=== PATIENT | male | born 1935 | race Caucasian/White ===

== ENCOUNTER 2018-06-04 12:24 | Observation (INO) | payer MEDICARE, BC ==
[~2018-06-04] VITALS: Ht 167.6 cm; Wt 74.0 kg
[~2018-06-04 12:24] MED LIST: ATORVASTATIN CA40 MG PO; FINASTERIDE5 MG PO; LOSARTAN-HCTZ1 EACH PO; MINOCYCLINE HCL50 MG PO; TYLENOL WITH C1 EACH PO
[2018-06-04] MEDS ORDERED: ASPIRIN 81 MG CHEW TAB PO ONE ×2 (12:30→13:30)
[2018-06-04] MEDS ORDERED: ASPIR 8181 MG (12:53)
[2018-06-04] MEDS ORDERED: MULTI-VITAMIN1 EACH (12:53)
[2018-06-04 12:55] LABS: BASOPHILS # (AUTO) 0.1 (0.0-0.1); BASOPHILS % 0.6 % (0.0-1.0); EOSINOPHILS # (AUTO) 0.5 (0.0-0.4); EOSINOPHILS % 5.1 % (0.0-6.0); HEMOGLOBIN 14.3 g/dL (14.0-18.0); LYMPHOCYTES # (AUTO) 3.1 (1.0-3.2); LYMPHOCYTES % 33.9 % (18.0-39.1); MEAN CORPUSCULAR HEMOGLOBIN 30.8 pg (28-32); MEAN CORPUSCULAR HGB CONC 35.8 g/dL (31-35); MEAN CORPUSCULAR VOLUME 86.2 fL (81-99); MONOCYTES % 10.5 % (4.4-11.3); NEUTROPHILS # (AUTO) 4.5 (2.1-6.9); NEUTROPHILS % 49.3 % (38.7-80.0); PLATELET COUNT 188 x10e3/uL (140-360); RED BLOOD COUNT 4.64 x10e6/uL (4.3-5.7); RED CELL DISTRIBUTION WIDTH 12.3 % (11.7-14.4)
--- NOTE | 2018-06-04 13:01 | Diagnostic Imaging Report ---
EXAM: XR CHEST 1 VIEW DATE: 06/04/2018 12:30 PM INDICATION: Weakness COMPARISON: None FINDINGS: Lines and Tubes: Left chest wall pacemaker. MERCHANDISING CONSULTANT shunt tubing left chest wall. Heart and Mediastinum: No acute cardiomediastinal findings. Lungs and Pleura: No significant pleural effusion, pneumothorax, or focal consolidation. Minimal atelectasis left lung base. Bones and Soft Tissues: No acute findings. IMPRESSION: 1. No acute cardiopulmonary findings. Signed by: Dr. Jj Bojorquez MD on 06/04/2018 12:58 PM
[2018-06-04 13:16] LABS: ALBUMIN 3.8 g/dL (3.5-5.0); ALBUMIN/GLOBULIN RATIO 1.4 (0.8-2.0); CALCIUM 9.3 mg/dL (8.4-10.2); CREATININE, SERUM 1.49 mg/dL (0.72-1.25)
[2018-06-04 13:23] LABS: CREATINE KINASE MB 1.3 ng/mL (0-5.0)
[2018-06-04 13:36] LABS: B-TYPE NATRIURETIC PEPTIDE2 144.9 pg/mL (0-100)
--- OUTSIDE RECORDS SUMMARY | 2018-06-04 13:50 | XMS REPORT ---
Author Author [facility] Address Unknown Phone Unavailable Care Team Providers Care Volunteer Firefighter Name Role Phone Lia BURGESS Unavailable Unavailable Problems This patient has no known problems. Allergies, Adverse Reactions, Alerts This patient has no known allergies or adverse reactions. Medications This patient has no known medications. Results Test Description Test Time Test Comments Text Results Atomic Results Result Comments CHEST SINGLE (PORTABLE) 2018-06-04 12:58:00 [place] [address] Patient Name: LUC BAILEY MR #: [id number] : 1935 Age/Sex: 83/M Req #: [id number] Adm Physician: Ordered by: NABILA BURGESS MD Report #: [id number] Location: ER Room/Bed: Procedure: [id number] DX/CHEST SINGLE (PORTABLE) Exam Date: 06/04/18 Exam Time: 1248 REPORT STATUS: Signed EXAM: XR CHEST 1 VIEW DATE: 06/04/2018 12:30 PM INDICATION: Weakness COMPARISON: None FINDINGS: Lines and Tubes: Left chest wall pacemaker. CONTROL CLERK shunt tubing left chest wall. Heart and Mediastinum: No acute cardiomediastinal findings. Lungs and Pleura: No significant pleural effusion, pneumothorax, or focal consolidation. Minimal atelectasis left lung base. Bones and Soft Tissues: No acute findings. IMPRESSION: 1. No acute cardiopulmonary findings. Signed by: Dr. Jj Lama MD on 06/04/2018 12:58 PM Dictated By: JJ LAMA MD [id number] Transcribed By: EULALIA on 06/04/18 1256 COPY TO: NABILA BURGESS MD
--- NOTE | 2018-06-04 14:01 | Diagnostic Imaging Report ---
ADDENDUM #1 The preliminary report was reviewed and a final report issued by Dr. Stanton neuroradiologist on 06/04/2018 at 3:47 PM. Signed by: Dr. Maryann Stanton M.D. on 06/04/2018 3:47 PM ORIGINAL REPORT Exam: Noncontrast head CT History:Weakness and syncope Comparison studies: None Technique: Axial images were obtained from the skull base to the vertex. Coronal and sagittal images reconstructed from the axial data. Dose modulation, iterative reconstruction, and/or weight based adjustment of the mA/kV was utilized to reduce the radiation dose to as low as reasonably achievable. Intravenous contrast: None Findings: Scalp/skull: Left posterior parietal approach ventriculostomy catheter in place with tip in the posterior body of the left lateral ventricle. The visualized extracranial connective tubing is intact. Extra-axial spaces: No masses. No fluid collections. Brain sulci: Mildly prominent, slightly disproportionate to the cortical sulci. Ventricles: Mild compensatory dilatation. Parenchyma: There are mild scattered hypodensities in the supratentorial white matter are small vessel ischemic changes. No masses, hemorrhage, or acute cortical vascular insults. Chronic lacunar infarct in the left caudate head. Sellar/suprasellar region: No abnormalities. Craniocervical junction: Patent foramen magnum. No Chiari one malformation. Incidental findings: Atherosclerotic calcifications in the carotid siphons . Air-fluid level within the sphenoid sinus. Impression: No acute intracranial abnormalities. There is an air-fluid level in the sphenoid sinus which is nonspecific, however may represent acute sinusitis in the proper clinical setting. Chronic findings: 1. Mild disproportionate enlargement of the ventricles compared to the cortical sulci with left posterior parietal approach ventriculostomy catheter in place. 2. 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 This is a preliminary report was provided by the neuroradiology fellow, Dr. Hermes Argueta. Attending over read to follow. Signed by: Hermes Argueta MD on 06/04/2018 1:58 PM
--- NOTE | 2018-06-04 14:45 | NUR ---
NURSE UNAVAILABLE FOR REPORT
--- NOTE | 2018-06-04 15:26 | NUR ---
RECEIVED PATIENT TO ROOM 109, PATIENT HARD OF HEARING, PATIENT ALERT AND ORIENTED X3, PATIENT ORIENTED TO THE ROOM, PATIENT EDUCATED TO CALL FOR ASSISTANCE TO GET OUT OF BED, BED IN LOW POSITION, PATIENT SHUFFLES WHEN HE AMBULATES, CALL LIGHT IS WITHIN REACH, BED ALARM TURNED ON. PATIENT'S SPOUSE AT BEDSIDE.
[2018-06-04 15:42] VITALS: BP 133/77
[2018-06-04 15:44] VITALS: BP 133/77
[2018-06-04 16:52] VITALS: BP 151/77
--- NOTE | 2018-06-04 17:00 | NUR ---
SPOKE WITH DR KERNS RE: CONSULT AND CT SCAN RESULTS, NEW ORDERS NOTED, WILL SEE PT IN AM
--- NOTE | 2018-06-04 17:40 | NUR ---
SPOKE WITH DR TAYLOR RE: CONSULT, WILL SEE PT IN AM
--- NOTE | 2018-06-04 19:09 | NUR ---
WALKING ROUNDS PERFORMED, RECEIVED PT LAYING SEMI FOWLERS IN BED, AAOX3, RR EVEN AND NON-LABORED, ON RA. NO S/SX OF DISTRESS NOTED. LEFT PT LAYING SEMI FOWLERS IN BED, BED IN LOW LOCKED POSITION, SIDE RAILS UPX2, CALL LIGHT AND PHONE WITHIN REACH.
--- NOTE | 2018-06-04 19:12 | NUR ---
SPOKE WITH DR KERNS RE: MRI CANCELED. PT HAS PACEMAKER AND OVERHEAD IRRIGATOR SHUNT. NO NEW ORDERS AT THIS TIME
[2018-06-04 20:00] VITALS: BP_SYST 129; BP_SYST 153; BP_DIAS 64; BP_DIAS 66
[2018-06-04 21:00] VITALS: BP 153/66
[2018-06-05] VITALS (7 sets, daily range): BP systolic 113–164; BP diastolic 57–80
[2018-06-05 05:41] LABS: BILIRUBIN,URINE NEGATIVE (NEGATIVE); CLARITY,URINE CLEAR (CLEAR); COLOR,URINE YELLOW (YELLOW); KETONES,URINE NEGATIVE (NEGATIVE); LEUKOCYTE ESTERASE ,URINE NEGATIVE (NEGATIVE); NITRITE,URINE NEGATIVE (NEGATIVE); PROTEIN,URINE DIPSTICK NEGATIVE (NEGATIVE); URINE UROBILINOGEN 0.2 mg/dL (0.2 - 1)
[2018-06-05 05:56] LABS: BACTERIA,URINE FEW /HPF; EPITHELIAL CELLS,URINE FEW /LPF; RBC,URINE 0-5 /HPF (0-5); WBC,URINE (MAN) 0-5 /HPF (0-5)
[2018-06-05 06:37] LABS: BASOPHILS # (AUTO) 0.1 (0.0-0.1); BASOPHILS % 0.7 % (0.0-1.0); EOSINOPHILS # (AUTO) 0.4 (0.0-0.4); EOSINOPHILS % 5.6 % (0.0-6.0); HEMATOCRIT 41.3 % (38.2-49.6); HEMOGLOBIN 13.9 g/dL (14.0-18.0); LYMPHOCYTES # (AUTO) 2.2 (1.0-3.2); LYMPHOCYTES % 29.9 % (18.0-39.1); MEAN CORPUSCULAR HEMOGLOBIN 29.4 pg (28-32); MEAN CORPUSCULAR HGB CONC 33.7 g/dL (31-35); MEAN CORPUSCULAR VOLUME 87.3 fL (81-99); MONOCYTES # (AUTO) 0.8 (0.2-0.8); MONOCYTES % 11.3 % (4.4-11.3); NEUTROPHILS # (AUTO) 3.7 (2.1-6.9); NEUTROPHILS % 51.9 % (38.7-80.0); PLATELET COUNT 184 x10e3/uL (140-360); RED BLOOD COUNT 4.73 x10e6/uL (4.3-5.7); RED CELL DISTRIBUTION WIDTH 12.1 % (11.7-14.4)
[2018-06-05 06:54] LABS: ALBUMIN 3.6 g/dL (3.5-5.0); ALBUMIN/GLOBULIN RATIO 1.4 (0.8-2.0); ANION GAP 13.9 mmol/L (8-16); CREATININE, SERUM 1.32 mg/dL (0.72-1.25); POTASSIUM 3.9 mmol/L (3.5-5.1)
[2018-06-05 07:01] LABS: CREATINE KINASE MB 1.3 ng/mL (0-5.0)
--- NOTE | 2018-06-05 07:41 | NUR ---
Received patient. Patient awake in bed at this time, no signs of distress. Call light in reach will continue to monitor.
--- NOTE | 2018-06-05 09:30 | NUR ---
Patient A/O X3, even respirations on RA. Left AC 18 gauge SL. Tele 20 V- paced. Last BM today, bowel sounds active. Patient is ambulatory with standby assist. Rash on right ankle. Skin is intact. Patient has shuffling gait. Call light in reach, will continue to monitor.
--- NOTE | 2018-06-05 10:14 | Consultation ---
DATE OF CONSULTATION: June 05, 2018 CARDIAC CONSULTATION REASON FOR CONSULTATION: Syncope. HISTORY: This is an 83-year-old gentleman who is known with hypertension, coronary artery disease, peripheral arterial vascular disease, status post aortobiiliac bypass surgery, chronic kidney disease, left internal carotid arterial disease, and pacemaker implantation in 2015, GOLF BALL COVER TREATER pacemaker. Patient is on observation. He is doing well. He is taking his medication. He is relatively good. He was at [facility] and ultimately he passed out. He cannot recall any details. Unfortunately, his is not at the bedside, which she was with him. As he recalled, no one told him he had a seizure. He was brought to this institution. His lab which showed his BUN at 53 and creatinine of 1.32. His blood pressure was 140/80. Heart rate of 70. His BNP was normal. First set of cardiac enzymes was normal. Patient was admitted for further management. Cardiac consultation is obtained. CT scan showed chronic changes. Of note, the patient had a MARKER SHIPMENTS shunt placed in June 2005. In November 2005, he had removal of the infected shunt. His course at that time complicated by pulmonary embolism and he had an inferior vena cava filter placement, permanent one. The patient is here to evaluate this episode of syncope. The patient cannot give more information. He is relatively not very active at his current level of activity. The patient is reasonably active. He takes his time to do things. He is not having any angina at this current level. He does have his usual shortness of breath, class III [place] [employer] classification. There is no prior syncope. There is no more symptoms to suggest orthostatic hypotension. This episode happened all suddenly. He does not recall any details. HOME MEDICATIONS 1. Aspirin 81 mg a day. 2. Atorvastatin 40 mg a day. 3. Losartan with hydrochlorothiazide 50 per 12.5 one tablet a day. 3. Fenestrate 5 mg a day. 4. Multivitamins. ALLERGIES: BETA KAYLIE CAUSING HIM SEVERE BRONCHOSPASM. REVIEW OF SYSTEMS: Was extensive to all systems. Will be summarized for clarity. GENERAL: No fever. No chills. No weight loss. No weight gain. HEENT: Decreased hearing. PULMONARY/CARDIAC: Class III shortness of breath on exertion. No angina. No prior syncope. Patient does not feel any palpitation. GI: No hematemesis. No melena. HEMATOLOGY: Easy bruising but no bleeding. : Difficult urination at times. MUSCULOSKELETAL: Nonspecific aches. NEUROLOGICAL: First episode of syncope. There is no history of seizure activity. PAST MEDICAL HISTORY: Very lengthy includin. Coronary artery disease. Latest cardiac catheterization in May showed 100% occluded right coronary artery, 20% left main, 30% ostial LAD. Several lesions across the LAD course. The circumflex is very large with 50% lesion proximally and distally. 2. Known to have 60% lesion of the left internal carotid artery. 3. Hypertension. 4. History of left bundle branch block and status post GOLF BALL COVER TREATER pacemaker implantation in 2014. 5. Status post aortobiiliac bypass surgery in 2004. 6. Back problem and herniated disk. 7. History of bladder cancer, status post bladder surgery. 8. Decreased hearing. 9. COPD. 10. MARKER SHIPMENTS shunt in June 2005 and removal in November 2005 for infection complicated that hospitalization by arrest secondary to pulmonary embolism, status post filter placement. 11. Hypercholesteremia. 12. Incisional abdominal hernia surgery. 13. Multiple skin surgeries. 14. Chronic renal insufficiency. 15. Lumbar laminectomy. 16. Bladder surgery. 17. Repeated cystoscopy. 18. Cholecystectomy. SOCIAL HISTORY: He is . He is a former smoker and stopped smoking many years ago. He is a non-alcohol drinker. He is retired from a chemical plant. FAMILY HISTORY: Father in his 70s with myocardial infarction. Mother in her 70s with myocardial infarction. Father at the age of 69 with congestive heart failure. PHYSICAL EXAMINATION GENERAL: A well-built gentleman in no acute distress. Difficulty hearing. VITALS: Height of 5 feet 6 inches, weight of 160 pounds. Blood pressure 160/80, heart rate of 60, respiratory rate of 18. HEENT: Pupils are reactive. Decreased hearing is noted. NECK: No elevation of jugular venous pulsation, carotid bruit. Old right carotid endarterectomy scar is noted. CHEST: Pacemaker is in place. Decreased lung expansion. Few coarse crackles. No wheezes. No rales. HEART: PMI in 5th left intercostal space. Normal 1st and 2nd heart sounds. ABDOMEN: Soft with good bowel sounds. No organomegaly. EXTREMITIES: No cyanosis. No clubbing. No edema. Decreased feet pulses. NEUROLOGIC: Awake, alert and oriented. Only decreased hearing. No focal deficits. LAB DATA: Sodium 134, potassium 3.9, BUN of 23, creatinine 1.3. White blood cell count of 7.1, hemoglobin 13.9, hematocrit 41%, and platelet count of 184,000. BNP of only 145. CK is normal. Chest x-ray with no acute changes. IMPRESSION AND PLAN 1. Syncope. 2. Status post pacemaker. 3. Left ventricular dysfunction with compensated status. 4. Hypertensive heart disease. 5. Coronary artery disease. 6. Peripheral arterial vascular disease. 7. Carotid disease. 8. Chronic renal insufficiency. 9. Decreased hearing. 10. Debility. 11. Status post inferior vena cava filter placement. 12. Status post ventriculoperitoneal shunt removal by history. Cardiac mar, would recommend observation on telemetry. Will interrogate his pacemaker to see if any correlation between his episode and what happened at [facility]. Patient will be seen by neurology. Will check an echocardiogram and will follow the patient's progression with you. Job#: [id number] [place]
--- NOTE | 2018-06-05 12:38 | NUR ---
CASE MANAGEMENT INITIAL ASSESSMENT Silk Spreader to bedside to discuss plan of care with patient/family. CM/SW role and care transitions discussed. Anticipated discharge plan discussed along with duration of care. CM/SW discussed patients right to make decisions in care. CM/SW work hours given. Patient lives: with Deisy Admit/Transfer: admit thru ED Hospital/ER visits since last admit: none POA/Emergency contact: Deisy Rosa [phone] Current/Previous Home Health: none PCP/Follow-up Care: Dr. Speedy Menard Current/Previous DME: hearing aids Medications (referring to index hospitalization or the first time you were in the hospital) a. Were changes made in your medications when you were in the hospital on [date of index hospitalization]? n/a; pt states he has not been hospitalized recently Note: If no or not sure, please skip to question d b. Did you understand the changes? n/a c. Were you able to obtain your new medications right away? n/a d. Were you able to take your medications like the doctor wanted you to? n/a e. Did the hospital give you an accurate, easy to understand list of medications when you left? n/a Scale of 1-10 how comfortable does patient feel with disease management in outpatient setting: Other Services: none Employment Status: retired Areas of Concerns: syncope Referral Needs: poss need for home health Education Needs: medical management IMM/RAIN given and signed (if applicable): RAIN was given on admission. Re-educated pt and on observation status and RAIN letter. Goal for discharge: "home as soon as possible" CM/SW left business card at the bedside with contact information. Name and number was also written on the patients whiteboard. Patient verbalized understanding of discussion. CM will follow-up with ongoing discharge and transition of care needs.
[2018-06-05 15:07] LABS: CREATINE KINASE MB 1.4 ng/mL (0-5.0)
--- NOTE | 2018-06-05 16:01 | Consultation ---
DATE OF CONSULTATION: June 05, 2018 HISTORY OF PRESENT ILLNESS: Mr. Rosa is an 83-year-old right hand dominant man with an extensive cardiac history, admitted to [facility] on June 04, 2018, with syncope versus seizure. On the morning of admission, the patient was at [facility]. Shortly after standing for prayers, the patient experienced the abrupt onset of dizziness, which is further described as a lightheaded sensation, a flushed sensation, and diaphoresis. Mr. Rosa does not report vertigo, chest pain or tightness, palpitations, or shortness of breath associated with the above symptoms. Once the above symptoms began, Mr. Rosa reports he sat down in the pew, then lay down on the pew. However, according to the patient's , Mr. Rosa sat down, holding a Bible in his hands. She reports the patient's eyes were open, staring forward, but the patient was unresponsive. The patient's called his name, then slapped his cheek, but there was still no response. Mrs. Rosa then asked for help. Several parishioners, some of whom were nurses, helped the patient to lay down and began taking vital signs. After he lay down, the patient became responsive once again. When he did regain consciousness, the patient was at his neurological baseline. While laying on the pew, the patient's does report stiffening of his arms and legs. Mr. Rosa continued to stare forward with an open "glazed expression." There is no foaming saliva, tongue biting, or bladder or bowel incontinence. The patient has no memory of the event described above. Emergency medical services were contacted and Mr. Rosa was transported via ambulance to the emergency center at [facility] for further evaluation of his symptoms. Upon arrival in the emergency center, the patient was afebrile with a blood pressure 129/61 mmHg and a pulse of 63 beats per minute. The patient's neurological examination was documented as being nonfocal. An electrocardiogram revealed a paced rhythm at 66 beats per minute. A CT of the brain without contrast was performed while the patient was in the emergency center. This study did not reveal evidence of recent large territorial ischemia or hemorrhage. Mr. Rosa was admitted to [facility] under observation status for further evaluation and treatment of his symptoms. The patient does not report a history of febrile seizures. There is no known family history of seizures. Mr. Rosa reports falling and hitting his head on concrete, resulting in a scalp laceration, at approximately 10 years of age. There was no loss of consciousness with this fall. Otherwise, the patient does not report a history of prior head trauma. There is no reported history of meningitis/encephalitis. REVIEW OF SYSTEMS: Confusion, possible seizure, lightheadedness, diaphoresis, flushed sensation. Otherwise, the 12-point review of systems is negative. PAST MEDICAL HISTORY: Hypertension, hyperlipidemia, coronary artery disease with prior myocardial infarction, symptomatic bradycardia, bladder cancer, normal-pressure hydrocephalus, benign prostatic hypertrophy. PAST SURGICAL HISTORY: Pacemaker placement, ventriculoperitoneal shunt placement, lumbar spine surgery, repair of abdominal aortic aneurysm, bladder surgery, cholecystectomy, bilateral cataract removal. PAST HOSPITALIZATIONS: Surgeries/procedures as listed, 2 prior hospitalizations for low back pain and syncope. FAMILY MEDICAL HISTORY: Hypertension, diabetes mellitus, heart disease. SOCIAL HISTORY: Mr. Rosa is . He is retired. The patient does report a history of tobacco use, but quit smoking cigarettes in 1999. The patient does report rare alcohol use. He does not report current or prior recreational drug use. HOME MEDICATIONS 1. Aspirin 81 mg by mouth daily. 2. Losartan and hydrochlorothiazide 1 tablet by mouth daily. 3. Atorvastatin 40 mg by mouth at bedtime daily. 4. Finasteride 5 mg by mouth daily. 5. Multivitamin 1 tablet by mouth daily. ALLERGIES: BETA BLOCKERS. NO KNOWN FOOD ALLERGIES. NO KNOWN ALLERGIES TO LATEX. NO KNOWN ALLERGIES TO IODINE OR OTHER CONTRAST MATERIALS. PHYSICAL EXAMINATION VITAL SIGNS: Height 66 inches, weight 159 pounds. BMI 25.7 kg per meter squared. Blood pressure 155/75 mmHg. Pulse 74 beats per minute. Respiratory rate 20 breaths per minute. Oxygen saturation 97% on room air. GENERAL: The patient is awake and alert. Does not appear distressed. HEENT: Normocephalic, atraumatic. Pupils are surgical. Moist mucous membranes. NECK: Supple. No appreciable thyromegaly. No appreciable carotid bruits. CARDIOVASCULAR: S1, S2, regular rate and rhythm. A low-grade systolic ejection murmur is appreciated. No rubs or gallops. RESPIRATORY: Clear to auscultation bilaterally. No wheezes, rhonchi or rales. EXTREMITIES: The skin is warm and dry. No clubbing, cyanosis, or edema. The posterior tibial and dorsalis pedis pulses are 1+ and symmetric. SKIN: No rashes or lesions. NEUROLOGIC Memory/Attention: The patient is awake and alert, oriented to person, place, time, and situation. Cranial Nerves: Cranial nerve I--not tested. Cranial nerve II, III, IV, and --pupils are surgical. Extraocular movements intact. No nystagmus. Cranial nerve V--sensation to light touch and pinprick is intact in the bilateral V1 through V3 distributions. Strength of the temporalis and masseter muscles is within normal limits. Cranial nerve VII--the face is symmetric as are all facial movements. Strength is within normal limits. Cranial nerve VIII--hearing is diminished to finger rub bilaterally. Cranial nerve IX, X--the soft palate elevates equally and symmetrically. Cranial nerve XI--normal strength of the bilateral sternocleidomastoid and trapezius muscles. Cranial nerve XII--the tongue protrudes midline and moves symmetrically from side to side. Strength: Bulk is normal. Strength is 5/5 in the bilateral deltoids, biceps, triceps, wrist flexors and extensors, finger flexors and extensors, intrinsic hand muscles, hip flexors, knee flexors and extensors, ankle dorsiflexion and plantarflexion, and intrinsic foot muscles. Tone is normal. DTRs: Deep tendon reflexes are 3+ and symmetric at the triceps, biceps, and brachioradialis. Deep tendon reflexes are 1+ and symmetric at patellas. Deep tendon reflexes are absent and symmetric at the Achilles. Plantar responses are flexor bilaterally. Sensation: Sensation is intact to light touch and pinprick in both arms and both legs. Cerebellar: Vwppxi-wvqe-olydbg and heel-mcbride movements are intact without dysmetria or other impairment. Gait: Deferred. Speech: Spontaneous speech is mildly dysarthric without aphasia. Repetition is intact. Involuntary Movements: None. Pronator Drift: None. LABORATORY DATA: A comprehensive metabolic panel is significant for a low serum sodium of 134, an elevated creatinine of 1.32, an decreased GFR of 52, and a total protein of 6.1. Cardiac enzymes are negative x2. Lactic acid 16.3. B natriuretic peptide 144.9. The CBC with differential and platelets reveals a white blood cell count of 7.18 with a normal differential. The hemoglobin and hematocrit are 13.9 and 41.3, respectively. The platelet count is 184. The patient's urinalysis is unremarkable. DIAGNOSTIC STUDIES Chest x-ray of 06/04/2018: No acute cardiopulmonary findings. CT of the brain without contrast 06/04/2018: On my review, there is no evidence of recent large territorial ischemia, hemorrhage, mass, or mass effect. A chronic lacunar infarct is seen in the left caudate head. There is diffuse cerebral atrophy, appropriate for the patient's age. There is dilatation of the ventricles, slightly more than expected given the degree of cerebral atrophy. A left posterior parietal approach ventriculostomy catheter is in place with the tip of the catheter in the posterior body of the left lateral ventricle. There are findings compatible with mild chronic small vessel ischemic disease. Electrocardiogram 06/04/2018: Electronic ventricular pacemaker at 66 beats per minute. Echocardiogram 06/05/2018: Ejection fraction 55% to 60%. Concentric left ventricular hypertrophy. Hypertrophic obstructive cardiomyopathy. Trace mitral and tricuspid regurgitation. ASSESSMENTS AND PLANS: Mr. Rosa is an 83-year-old right hand dominant man with an extensive past medical history, admitted to [facility] on June 04, 2018, with syncope versus seizure. At present, the patient's neurological examination is nonfocal. His laboratory data and other diagnostic studies have been reviewed and are documented above. The patient's CT of the brain without contrast does not reveal a structural abnormality which would give rise to seizures. An electroencephalogram has been ordered and is pending. The results of the electroencephalogram will dictate whether or not the patient is prescribed an antiepileptic medication. 1. An electroencephalogram has been ordered and is pending. The study will be completed on 06/06/2018. 2. Dr. Chad Reyes has been consulted to evaluate the patient's ventriculoperitoneal shunt. 3. The patient's progressive care unit registered nurse, Dr. Rubi, has been consulted as well. 4. Defer treatment of the remaining medical comorbidities to the primary and other services following the patient. Thank you for this consultation. I will continue to follow this patient while he remains in the hospital. TIME SPENT: 70 minutes. Job#: [id number] JESSA MARY
[2018-06-05] MEDS: FAMOTIDINE 20 MG TAB PO SCH (16:59)
--- NOTE | 2018-06-05 18:12 | History and Physical ---
PRIMARY CARE PROVIDER: Dr. Speedy Menard, not on staff. CHIEF COMPLAINT: Syncope. HISTORY OF PRESENT ILLNESS: Mr. Rosa is an 83-year-old gentleman who had an unexplained loss of consciousness after standing up in [employer]. He initially felt lightheaded, denied chest pain or palpitations, sat back down in a chair and then passed out on the floor. When he woke up, he had a blank stare for a couple of minutes but then returned to baseline with no memory problems and he did remember right up until the incident of passing out. REVIEW OF SYSTEMS: He denies fever, chills or weight loss. He denies sinus congestion or sore throat. He denies chest pain or palpitations. He does have a pacemaker. He denies shortness breath, wheezing or cough. He denies abdominal pain, diarrhea, nausea, vomiting or melena. He denies dysuria or flank pain. He denies rash or pruritus. He denies joint pain or swelling. He denies headache or vertigo. He had an unexplained loss of consciousness but returned to baseline with no neuro deficits. He denies depression, agitation, homicidal or suicidal ideation. His states that he has a little bit of dementia and does occasionally get a little agitated. PAST MEDICAL HISTORY: Significant for hypertension, normal-pressure hydrocephalus, mild dementia, coronary artery disease, AFib/sick sinus syndrome, and benign prostatic hypertrophy. MEDICATIONS: His regular medications include: Losartan /hydrochlorothiazide 50/12.5 daily. Multivitamin daily. Proscar 5 mg daily. Lipitor 40 mg at bedtime. Aspirin 81 mg daily. PAST SURGICAL HISTORY: He has a history of abdominal aortic aneurysm repair in 1999. He has had a lap carly. He has a pacemaker placement and a ventriculostomy for normal-pressure hydrocephalus. FAMILY HISTORY: Unremarkable. SOCIAL HISTORY: The patient is , here with his . He is . [place] Island[place] is his primary language. He does not smoke, drink or use illegal drugs, and he is generally independently functioning but does require some supervision by his . PHYSICAL EXAM: PSYCHIATRIC: The patient is awake, alert. Appears oriented and in no distress. He has a normal body habitus. VITAL SIGNS: Blood pressure 129/60, pulse 64 and regular, respiratory rate 20, O2 sat 98% on room air, temperature 96.0. HEENT: His head is atraumatic. His eyes are anicteric with clear conjunctivae. Ears and nares are without erythema or discharge. Oropharynx is clear. NECK: Is supple with no mass or thyromegaly. LYMPHATIC SYSTEM: He has no palpable cervical, axillary or inguinal adenopathy. CARDIOVASCULAR: He has a regular rate and rhythm without murmur. He is paced on his EKG. He has no carotid bruit, no peripheral edema, and has palpable dorsal pedal pulses. RESPIRATORY: Lungs are clear to auscultation and percussion with normal respiratory effort. GASTROINTESTINAL: His abdomen is soft without organomegaly, masses or tenderness. He has a midline scar. He has normal bowel sounds present. CUTANEOUS: His skin is warm and dry to the touch with no rash or skin breakdown. MUSCULOSKELETAL: His joints are in normal alignment without erythema or swelling. He has no calf tenderness. NEUROLOGIC: Exam is nonfocal. The patient does have a little bit of ataxia, a shuffled wide-based gait, and some increasing dementia suggesting that his NPH may be recurring, but his cranial nerves are intact and he has no motor or sensory deficits. DIAGNOSTIC STUDIES: Chest x-ray shows no acute disease. 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 His UA is clear. His lactate is 16.3, which is normal. Troponin 0.001, 0.004, and 0.002. BNP is 144.9, which is slightly elevated. His chemistry shows normal electrolytes. CO2 is 23. Creatinine 1.32, BUN 23 for a GFR of 52. Calcium 9.0. Glucose 101. His transaminases, bilirubin, alk phos are normal. CBC shows a white count of 7.18 with a normal differential. Hemoglobin 13.9, hematocrit 41.3 and platelet count 184,000. Lipase is 22. ASSESSMENT AND PLAN: 1. Syncope, possible transient ischemic attack. Patient has extensive microvascular changes on CT. Cardiology has been consulted, and aspirin has been given. Neurology has also been consulted. 2. Possible seizure activity. Neurology has been consulted. The patient has no history of seizures or family history of seizures. EEG has been ordered. Neurology does not feel like the patient had a seizure. 3. Normal-pressure hydrocephalus. This may be getting worse. Neurosurgery has been consulted to assess the functioning of the ventriculostomy catheter. 4. Hypertension with coronary artery disease and chronic kidney disease stage 3. Is controlled. Actually, we are going to hold the losartan/hydrochlorothiazide and we are going to change that to Norvasc instead for his blood pressure to prevent orthostasis. 5. Orthostatic hypotension is the most likely cause of his syncope. Again will stop losartan/hydrochlorothiazide and change to Norvasc in view of chronic kidney disease and syncope. 6. Chronic atrial fibrillation/sick sinus syndrome. The pacemaker checks out fine. There is no anticoagulation onboard per Cardiology. 7. For prophylaxis, he will have SCDs placed for DVT prophylaxis and Pepcid for GI prophylaxis. Job#: [id number] EV
--- NOTE | 2018-06-05 20:03 | NUR ---
Patient is being sent to Observation. report was given to RN. Patient is alert and oriented x 3.
--- NOTE | 2018-06-05 20:28 | NUR ---
Patient left the unit on a wheelchair. He was stable and no distress noted. He went to room 177. He took all his belongings with him. His accompanied him to room 177.
[2018-06-05] MEDS ORDERED: ATORVASTATIN 40 MG TAB PO SCH (21:00)
--- NOTE | 2018-06-05 23:44 | Consultation ---
DATE OF CONSULTATION: June 05, 2018 REASON FOR CONSULTATION: Rule out shunt malfunction. HISTORY: The patient is an 83-year-old man who underwent placement of a left parietal ventriculoperitoneal shunt by me many years ago for treatment of normal-pressure hydrocephalus with good results. He now comes in with an episode of near syncope. A CT of the brain was performed and I was consulted to determine if he has developed shunt malfunction. The patient states that he has been at his neurological baseline prior to this near syncopal event. He has had no headaches. He has had no alteration of his thinking and memory which remained pretty good. He has chronic shuffling gait and uses a walker. PHYSICAL EXAMINATION: The patient is alert and oriented x3. Memory is good for his age and speech is fluent. Cranial nerves are intact. Motor strength is symmetric. There is no drift. He is able to stand on his own and walk around with a shuffling gait. The shunt reservoir is readily compressible and refills quickly. CT of the brain reveals baseline size of his cerebral ventricles with a well-positioned shunt in the left atrium. IMPRESSION: No evidence of ventriculoperitoneal shunt malfunction. I will sign off. Job#: [id number]
[2018-06-06] VITALS (7 sets, daily range): BP systolic 128–156; BP diastolic 68–82
[2018-06-06 04:08] LABS: ALBUMIN 3.4 g/dL (3.5-5.0); ALBUMIN/GLOBULIN RATIO 1.1 (0.8-2.0); ANION GAP 14.4 mmol/L (8-16); CALCIUM 8.9 mg/dL (8.4-10.2); CHOL/HDL RATIO 2.8 (3.9-4.7); CREATININE, SERUM 1.37 mg/dL (0.72-1.25); POTASSIUM 4.4 mmol/L (3.5-5.1)
[2018-06-06 04:19] LABS: BASOPHILS % 0.5 % (0.0-1.0); EOSINOPHILS % 4.3 % (0.0-6.0); HEMATOCRIT 40.8 % (38.2-49.6); HEMOGLOBIN 13.8 g/dL (14.0-18.0); LYMPHOCYTES # (AUTO) 2.3 (1.0-3.2); LYMPHOCYTES % 25.3 % (18.0-39.1); MEAN CORPUSCULAR HEMOGLOBIN 29.7 pg (28-32); MEAN CORPUSCULAR HGB CONC 33.8 g/dL (31-35); MEAN CORPUSCULAR VOLUME 87.7 fL (81-99); MONOCYTES % 10.7 % (4.4-11.3); NEUTROPHILS # (AUTO) 5.4 (2.1-6.9); NEUTROPHILS % 58.8 % (38.7-80.0); PLATELET COUNT 201 x10e3/uL (140-360); RED BLOOD COUNT 4.65 x10e6/uL (4.3-5.7); RED CELL DISTRIBUTION WIDTH 12.2 % (11.7-14.4)
[2018-06-06 04:20] LABS: BASOPHILS # (AUTO) 0.1 (0.0-0.1); EOSINOPHILS # (AUTO) 0.4 (0.0-0.4)
[2018-06-06 04:29] LABS: THYROID STIMULATING HORMONE 2.185 uIU/mL (0.350-4.940)
--- NOTE | 2018-06-06 07:00 | NUR ---
SHIFT REPORT RECEIVED FROM NIGHT RN WHILE ROUNDING. PT DENIES NEEDS AT THIS TIME.
[2018-06-06] MEDS: FAMOTIDINE 20 MG TAB PO SCH ×2 (08:20→16:43)
[2018-06-06] MEDS ORDERED: MULTIVITAMINS/MINERALS TAB PO SCH (09:00)
[2018-06-06] MEDS ORDERED: ASPIRIN 81 MG CHEW TAB PO SCH (09:00)
[2018-06-06] MEDS ORDERED: LOSARTAN POTASSIUM 100 MG TAB PO SCH (09:00)
[2018-06-06] MEDS ORDERED: HYDROCHLOROTHIAZIDE 25 MG TAB PO SCH (09:00)
[2018-06-06] MEDS ORDERED: FINASTERIDE 5 MG TAB PO SCH (09:00)
--- NOTE | 2018-06-06 14:35 | Electroencephalogram ---
DATE OF STUDY: June 06, 2018 ELECTROENCEPHALOGRAM PATIENT HISTORY: This 83-year-old man with a history of syncope versus seizure is having an EEG for evaluation of epileptiform activity. The patient is not taking any medications that might affect the EEG. TECHNIQUE: This is a routine, portable EEG, recorded digitally using the international 10/20 electrode placement system, and done in the inpatient setting with the patient awake and asleep. The EEG is adequate for interpretation. DESCRIPTION: Well-organized, well-sustained, 6-7 Hertz activity is best seen symmetrically over the posterior head regions. No focal or epileptiform activity is recorded. Sleep is recorded with well-organized spindles and vertex waves. Photic stimulation does produce a driving response. Hyperventilation does not produce a slowing response. INTERPRETATION: This electroencephalogram is abnormal due to diffuse slowing of background electrocortical activity compatible with mild generalized encephalopathy. No epileptiform discharges are seen. Clinical correlation is recommended. Job#: [id number] MEHRAN
[2018-06-06] MEDS ORDERED: COZAAR100 MG PO (17:28)
--- NOTE | 2018-06-06 23:23 | Discharge Summary ---
ADMITTING DIAGNOSES 1. Syncope. 2. Possible transient ischemic attack. 3. Possible seizure. 4. Normal pressure hydrocephalus with previous ventriculostomy catheter. 5. Hypertension with a history of coronary artery disease and chronic kidney disease stage 3. 6. Chronic atrial fibrillation and sick sinus syndrome, status post pacemaker placement. DISCHARGE DIAGNOSES 1. Syncope. 2. Possible transient ischemic attack. 3. Possible seizure. 4. Normal pressure hydrocephalus with previous ventriculostomy catheter. 5. Hypertension with a history of coronary artery disease and chronic kidney disease stage 3. 6. Chronic atrial fibrillation and sick sinus syndrome, status post pacemaker placement. BRIEF HISTORY: Mr. Rosa is an 83-year-old gentleman who has had multiple medical issues in the past with normal pressure hydrocephalus with ventriculostomy, previous CAD, abdominal aortic aneurysm repair and pacemaker. He presented to the emergency department after a syncopal event he had at [employer] after he stood up. He stood up, got lightheaded, sat down and then passed out. When he woke up he had kind of a black stare for a couple of minutes, but then he returned to baseline, had full memory of the events prior to his syncope. Had no chest pain or palpitations and he was at baseline when he woke up. HOSPITAL COURSE: The patient was admitted to the floor. 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 The patient was seen by neurology who did not feel that the patient had a TIA or seizure. She felt that it was orthostatic hypotension or vasovagal syncope. He was also seen by cardiology, who had the same conclusion that the patient had vasovagal syncope versus orthostatic hypotension causing syncope. He was also seen by neurosurgery to evaluate the ventriculostomy and the neurosurgeon felt like it was operating fine and the patient did not require surgery. So, the patient was discharged home. He was taken off of his hydrochlorothiazide, but will continue his losartan and his other home meds. He can resume regular diet and activity as tolerated and follow up with his primary care provider within two weeks. CORINA RUIZ MD Job#: [id number] MELIZA
== END 2018-06-06 18:34 | disposition home or self-care (01) ==
LOC: ER 12:24 → ERHOLD 13:26 → MED/SURG 15:15 → IMCU 06-05 20:30
PROVIDERS: ADMIT Internal Medicine; ATTEND Internal Medicine
DX: I95.1 Orthostatic hypotension (principal); I10 Essential (primary) hypertension; N18.3 Chronic kidney disease, stage 3 (moderate); I25.10 Atherosclerotic heart disease of native coronary artery without angina pectoris; G91.2 (Idiopathic) normal pressure hydrocephalus; I48.2 Chronic atrial fibrillation; Z79.01 Long term (current) use of anticoagulants; I49.5 Sick sinus syndrome; Z95.0 Presence of cardiac pacemaker; Z98.2 Presence of cerebrospinal fluid drainage device; I25.2 Old myocardial infarction; Z87.891 Personal history of nicotine dependence; I51.7 Cardiomegaly; I73.9 Peripheral vascular disease, unspecified; I67.89 Other cerebrovascular disease; H91.90 Unspecified hearing loss, unspecified ear; I13.0 Hypertensive heart and chronic kidney disease with heart failure and stage 1 through stage 4 chronic kidney disease, or unspecified chronic kidney disease; I50.9 Heart failure, unspecified
CPT/HCPCS: 36415 ×3; 70450; 71045; 80053 ×3; 80061; 81001; 82550 ×2; 82553 ×2; 83605; 83690; 83880; 84443; 84484 ×2; 85025 ×3; 93005 ×2; 93306; 95812; 97139; 99284; G0378 ×3

== ENCOUNTER 2018-09-22 12:00 | Emergency (ER) | payer MEDICARE, BC ==
[~2018-09-22] VITALS: Ht 167.6 cm; Wt 73.9 kg
[~2018-09-22 12:00] MED LIST changes: +ASPIR 8181 MG; +COZAAR100 MG PO; +MULTI-VITAMIN1 EACH
[2018-09-22] MEDS ORDERED: TETANUS/DIPHTHERIA TOX ADULT 0.5 ML SYR IM ONE (12:15)
--- NOTE | 2018-09-22 14:08 | Diagnostic Imaging Report ---
Exam: Noncontrast head CT History:Status post fall hit the top of the head, headache Comparison studies: CT head 06/04/2018 Technique: Axial images were obtained from the skull base to the vertex. Coronal and sagittal images reconstructed from the axial data. Dose modulation, iterative reconstruction, and/or weight based adjustment of the mA/kV was utilized to reduce the radiation dose to as low as reasonably achievable. Intravenous contrast: None Findings: Scalp/skull: Left posterior parietal approach ventriculostomy catheter in place with tip in the posterior body of the left lateral ventricle, stable. The visualized extracranial connective tubing is intact. Extra-axial spaces: No masses. No fluid collections. Brain sulci: Mildly prominent, slightly disproportionate to the cortical sulci. Ventricles: Stable dilatation. Parenchyma: Scattered small hypodensities in the supratentorial white matter are small vessel ischemic changes. No masses, hemorrhage, or acute cortical vascular insults. 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 Sellar/suprasellar region: No abnormalities. Craniocervical junction: Patent foramen magnum. No Chiari one malformation. Incidental findings: Atherosclerotic calcifications in the carotid siphons . Mucosal thickening within the sphenoid sinus. Impression: No acute intracranial abnormalities. No significant change from previous examination Chronic findings: 1. Stable enlargement of the ventricles with left posterior parietal approach ventriculostomy catheter in place. 2. 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 3. Chronic inflammatory changes of the sphenoid sinuses Signed by: DR Larry Falk M.D. on 09/22/2018 2:05 PM
[2018-09-22] MEDS ORDERED: LIDOCAINE 1% W/EPINEPHRINE 20 ML VIAL ONE (14:30)
[2018-09-22 15:19] VITALS: BP 160/70
== END 2018-09-22 15:28 | disposition home or self-care (01) ==
LOC: ER 12:00
DX: S01.01XA Laceration without foreign body of scalp, initial encounter (principal); W01.198A Fall on same level from slipping, tripping and stumbling with subsequent striking against other object, initial encounter; Y92.008 Other place in unspecified non-institutional (private) residence as the place of occurrence of the external cause
CPT/HCPCS: 70450; 90714; 99283